=== PATIENT | female | born 1950 | race Caucasian/White ===

== ENCOUNTER → 2017-01-27 | Outpatient (CLI) | payer BC | END | disposition home or self-care (01) | LOC: GMAB 16:54 | PROVIDERS: ATTEND Family Medicine | DX: R00.0 Tachycardia, unspecified (principal) ==

== ENCOUNTER → 2017-01-27 | Outpatient (CLI) | payer BC | END | disposition home or self-care (01) | LOC: RESP 14:59 | PROVIDERS: ATTEND Family Medicine | DX: R00.0 Tachycardia, unspecified (principal) ==

== ENCOUNTER → 2017-01-28 | Outpatient (CLI) | payer BC ==
--- NOTE | 2017-01-29 10:35 | US ---
EXAM DESCRIPTION: Thyroid CLINICAL HISTORY: 66 years Female, NODULE TECHNIQUE: Grayscale and color Doppler imaging of the thyroid gland was performed. The right thyroid lobe measures 4.2 cm in diameter, left measures 4.9 cm in diameter. The isthmus measures 2 mm in diameter. Mildly heterogeneous thyroid gland, but no evidence of a nodule at this time. No cysts noted. IMPRESSION: Today's ultrasound of the thyroid reveals a mildly heterogeneous thyroid gland which can be seen in setting of thyroiditis. There is no evidence of a thyroid nodule at this time. Electronically signed by: Rob Muro MD 01/29/2017 10:34 AM CDT
== END | disposition home or self-care (01) ==
LOC: US 13:37
PROVIDERS: ATTEND Family Medicine
DX: R94.6 Abnormal results of thyroid function studies (principal)

== ENCOUNTER → 2017-02-24 | Outpatient (CLI) | payer BC | END | disposition home or self-care (01) | LOC: LAB.O 09:35 | PROVIDERS: ATTEND Internal Medicine | DX: E05.90 Thyrotoxicosis, unspecified without thyrotoxic crisis or storm (principal) ==

== ENCOUNTER → 2017-04-21 | Outpatient (CLI) | payer BC | END | disposition home or self-care (01) | LOC: GMAB 12:10 | PROVIDERS: ATTEND Family Medicine | DX: E05.90 Thyrotoxicosis, unspecified without thyrotoxic crisis or storm (principal) ==

== ENCOUNTER → 2017-05-15 | Outpatient (CLI) | payer BC | END | disposition home or self-care (01) | LOC: GMAB 14:41 | PROVIDERS: ATTEND Family Medicine | DX: E05.90 Thyrotoxicosis, unspecified without thyrotoxic crisis or storm (principal) ==

== ENCOUNTER → 2017-07-25 | Outpatient (CLI) | payer MEDICARE | END | disposition home or self-care (01) | LOC: LAB.O 08:28 | PROVIDERS: ATTEND Internal Medicine | DX: E05.90 Thyrotoxicosis, unspecified without thyrotoxic crisis or storm (principal) ==

== ENCOUNTER → 2017-07-29 | Outpatient (CLI) | payer MEDICARE | END | disposition home or self-care (01) | LOC: GMAB 11:52 | PROVIDERS: ATTEND Family Medicine | DX: E03.9 Hypothyroidism, unspecified (principal) ==

== ENCOUNTER → 2017-09-18 | Outpatient (CLI) | payer MEDICARE | LOC: GMAB 15:06 | PROVIDERS: ATTEND Family Medicine | DX: E03.9 Hypothyroidism, unspecified (principal) ==

== ENCOUNTER → 2017-11-20 | Outpatient (CLI) | payer MEDICARE | LOC: GMAB 14:47 | PROVIDERS: ATTEND Family Medicine | DX: E03.9 Hypothyroidism, unspecified (principal) ==

== ENCOUNTER → 2018-02-17 | Outpatient (CLI) | payer MEDICARE | LOC: GMAB 15:07 | PROVIDERS: ATTEND Family Medicine | DX: E03.9 Hypothyroidism, unspecified (principal) ==

== ENCOUNTER → 2018-07-03 | Outpatient (CLI) | payer MEDICARE | LOC: GMAE 10:35 | PROVIDERS: ATTEND Family Medicine | DX: E03.9 Hypothyroidism, unspecified (principal) ==

== ENCOUNTER → 2018-09-14 | Outpatient (CLI) | payer MEDICARE ==
--- NOTE | 2018-09-15 11:01 | US ---
US THYROID CLINICAL STATEMENT: NONTOXIC MULTINODULAR GOITER. . No palpable mass. No prior thyroid surgery. Thyroid medication for hypothyroidism. COMPARISON: None FINDINGS: Size right thyroid lobe: 5.4 x 2.2 x 1.6 cm Size left thyroid lobe: 5.5 x 1.7 x 1.7 cm Size isthmus: 0.1 cm Estimated total number of nodules greater than or equal to 1 cm: None. Both lobes and isthmus are heterogeneous. Nodule 1: Size: 0.8 x 0.6 x 0.5 cm Location: Right Upper Composition: cystic or completely cystic: 0 points Echogenicity: anechoic: 0 points Shape: wider than tall: 0 points Margins: smooth: 0 points Echogenic foci: none: 0 points ACR Total Points: 0; ACR TI-RADS risk category: TR1 - benign nodule Nodule 2: Size: 0.9 x 0.8 x 0.8 cm Location: Left Lower Composition: solid or almost completely solid: 2 points Echogenicity: hypoechoic: 2 points Shape: wider than tall: 0 points Margins: smooth: 0 points Echogenic foci: none: 0 points ACR Total Points: 4; ACR TI-RADS risk category: TR4 - moderately suspicious nodule. The soft tissue surrounding the thyroid gland demonstrates no focal abnormal solid masses. No distinct cysts. No large calcifications. No parenchymal edema. No overlying skin changes. No abnormal vascularity. IMPRESSION: 1. Nodule 1: ACR TI-RADS 2017 Category TR1. Recommend: No follow-up. Recommendations based upon [employer] recommendations following ACR TI-RADS 2017 guidelines. Please see below.* 2. Nodule 2: ACR TI-RADS 2017 Category TR4. Recommend: No further follow-up.. 3. Soft tissue around the thyroid gland is unremarkable. *ACR TI-RADS 2017 Recommendations: TR1: No FNA or follow up TR2: No FNA or follow up TR3: FNA if >/= 2.5 cm, follow up if 1.5 - 2.4 cm in 1, 3, and 5 years TR4: FNA if >/= 1.5 cm, follow up if 1.0 - 1.4 cm in 1, 2, 3, and 5 years TR5: FNA if >/= 1.0 cm, follow up if 0.5 - 0.9 cm every year for 5 years ACR TI-RADS recommends that no more than two nodules with the highest ACR TI-RADS total point should be biopsied and no more than four nodules should be followed. Electronically signed by: Chet Bethea MD 09/15/2018 11:00 AM [facility]
== END ==
LOC: US 16:17
PROVIDERS: ATTEND Family Medicine
DX: E04.2 Nontoxic multinodular goiter (principal)

== ENCOUNTER → 2018-10-02 | Outpatient (CLI) | payer MEDICARE | LOC: GMAE 10:36 | PROVIDERS: ATTEND Family Medicine | DX: E03.9 Hypothyroidism, unspecified (principal) ==

== ENCOUNTER → 2019-01-28 | Outpatient (CLI) | payer MEDICARE | LOC: GMAE 12:58 | PROVIDERS: ATTEND Family Medicine | DX: E03.9 Hypothyroidism, unspecified (principal) ==

== ENCOUNTER → 2019-02-15 | Outpatient (CLI) | payer MEDICARE | LOC: GMAE 11:50 | PROVIDERS: ATTEND Family Medicine | DX: Z79.01 Long term (current) use of anticoagulants (principal) ==

== ENCOUNTER → 2019-05-11 | Outpatient (CLI) | payer MEDICARE | LOC: GMAE 11:27 | PROVIDERS: ATTEND Family Medicine | DX: E03.9 Hypothyroidism, unspecified (principal) ==

== ENCOUNTER → 2020-03-15 | Outpatient (CLI) | payer MEDICARE ==
--- NOTE | 2020-03-15 16:06 | US ---
EXAM DESCRIPTION: Soft Tissue,Head/Neck: ULTRASOUND. CLINICAL HISTORY: 69 years Female BENIGN LIPOMATOUS NEOPLASM UNSPEC LEFT SIDE NECK LIPOMA COMPARISON: None Available. TECHNIQUE: Transcutaneous scanning: Person-scale and Doppler modes. FINDINGS: Left neck base area of palpation scanning. Heterogeneous mass with thin capsule measuring 4.1 x 6.6 x 1.8 cm similar echogenicity to the surrounding adipose tissue. Minimal vascularity. Most likely a lipoma. No dominant solid mass, large calcifications, or fluid collection or cyst. . IMPRESSION: 6.7 cm lipoma base of left neck. Electronically signed by: Chet Beteha MD 03/15/2020 4:04 PM CDT
== END ==
LOC: US 11:19
PROVIDERS: ATTEND Family Medicine
DX: D17.9 Benign lipomatous neoplasm, unspecified (principal)

== ENCOUNTER 2020-04-03 05:26 | Day surgery (SDC) | payer MEDICARE ==
[2020-04-03] MEDS ORDERED: LACTATED RINGERS 1,000 ML ONE (06:40)
[2020-04-03] MEDS ORDERED: LIDOCAINE 1% 50 ML VIAL INJ ONE ×2 (08:21→08:27)
[2020-04-03] MEDS ORDERED: MIDAZOLAM INJ 2 MG/2 ML VIAL ONE (08:36)
[2020-04-03] MEDS ORDERED: fentaNYL CITRATE INJ 50 MCG/ML 2 ML AMP ONE (08:36)
[2020-04-03] MEDS ORDERED: KETAMINE HCL 100 MG/ML VIAL ONE (08:36)
[2020-04-03] MEDS ORDERED: LIDOCAINE 1% 10 ML VIAL INJ ONE (10:00)
[2020-04-03] MEDS ORDERED: PROPOFOL 200 MG/20 ML VIAL IV ONE (10:00)
--- NOTE | 2020-04-03 10:50 | OP ---
DATE OF PROCEDURE: 04/03/20 PREOPERATIVE DIAGNOSIS: POSTOPERATIVE DIAGNOSIS: PROCEDURE: 1. Excision of left neck mass. SURGEON: Peter Chen MD. ANESTHESIA: IV sedation. INDICATION: The patient is a 69-year-old female who developed a mass in her left neck. She underwent radiologic workup with ultrasound which was consistent with a mass consistent with a lipoma. No adenopathy was identified. She was brought to the Surgical Suite today for excision of same after the risks, benefits and alternatives to the procedure were discussed and accepted. FINDINGS: This mass was not a discrete lipoma that was from surrounding tissues and was dissected out in a somewhat piecemeal manner with dissection of blood vessels, muscle and nerves dissected away from the mass. PROCEDURE: After adequate IV sedation was performed and the patient was prepped and draped in the usual sterile manner, a surgical time-out was taken. A transverse incision which had been marked previously was infiltrated with local anesthesia. The skin was incised with a sharp knife. Dissection was carried down through the skin into to the subcutaneous tissue using electrocautery. Retractors were placed and further dissection was performed taken deeper until fatty tissue that was prominent was identified. We then began tedious circumferential dissection using blunt dissection and electrocautery. As noted, it was removed in a piecemeal manner. When this was done, which took some time, it was then irrigated with local anesthetic. Hemostasis was noted to be adequate. It was then closed in 2 layers with the subcutaneous tissue/platysma closed with interrupted 3-0 Vicryl sutures and the skin edges were approximated with 4-0 Nylon vertical mattress sutures. Sterile pressure dressing was applied. The patient tolerated the procedure well. Estimated blood loss was less than 25 mL. All sponge, needle and instrument counts were correct. #[id number] [facility]
[2020-04-03] MEDS ORDERED: traMADol HCL 50 MG TAB ONE (11:00)
[2020-04-03 11:37] VITALS: O2SAT 96
[2020-04-03 11:39] VITALS: BP 146/77; TEMP 97.7
== END 2020-04-03 11:35 | disposition home or self-care (01) ==
LOC: AMB 05:26
PROVIDERS: ATTEND Surgery
DX: R22.1 Localized swelling, mass and lump, neck (principal); E66.9 Obesity, unspecified; E03.9 Hypothyroidism, unspecified; J45.909 Unspecified asthma, uncomplicated; Z88.8 Allergy status to other drugs, medicaments and biological substances; Z79.82 Long term (current) use of aspirin; Z79.899 Other long term (current) drug therapy
CPT/HCPCS: 00300; 21555; 88304; J2250; J3010; J3490; J7120

== ENCOUNTER → 2020-10-11 | Outpatient (CLI) | payer MEDICARE | LOC: GMAE 10:28 | PROVIDERS: ATTEND Family Medicine | DX: E03.9 Hypothyroidism, unspecified (principal); E78.2 Mixed hyperlipidemia; Z79.899 Other long term (current) drug therapy ==